=== PATIENT | male | born 1965 | race Caucasian/White ===

== ENCOUNTER 2018-05-20 14:16 | Inpatient (IN) | payer OTHER ==
[~2018-05-20] VITALS: Ht 180.3 cm; Wt 94.3 kg
[~2018-05-20 14:16] MED LIST: DIURETIC PO
[2018-05-20 15:29] LABS: BASOPHILS % (AUTO) 1.3 % (0.0-2.0); EOSINOPHILS % (AUTO) 2.4 % (1.0-6.0); HEMATOCRIT 37.4 % (41-53); HEMOGLOBIN 13.1 g/dL (13.5-17.5); LYMPHOCYTES # (AUTO) 0.7 K/uL (1.0-4.8); LYMPHOCYTES % (AUTO) 15.1 % (22.0-44.0); MEAN CORPUSCULAR HEMOGLOBIN 34.8 pg (26.0-34.0); MEAN CORPUSCULAR VOLUME 99 fL (80-100); MONOCYTES # (AUTO) 0.7 K/uL (0.1-1.0); MONOCYTES % (AUTO) 14.7 % (2.0-9.0); NEUTROPHILS % (AUTO) 66.5 % (40.0-70.0); RED BLOOD CELL COUNT(AUTO) 3.76 MIL/uL (4.50-5.90); RED CELL DISTRIBUTION WIDTH 14.4 % (11.5-14.5)
[2018-05-20 15:43] LABS: ANION GAP 8 mmol/L (8-16); CALCIUM, TOTAL 8.2 mg/dL (8.8-10.5); CARBON DIOXIDE 23 mmol/L (22-29); CHLORIDE 100 mmol/L (98-107); CREATININE 0.73 mg/dL (0.60-1.30); GLOMERULAR FILTR. RATE CALC > 60 mL/min (>60); GLUCOSE,RANDOM 167 mg/dL (70-110); POTASSIUM 4.3 mmol/L (3.5-5.1); SODIUM SERUM 131 mmol/L (136-145); UREA NITROGEN, BLOOD 8 mg/dL (7-18)
[2018-05-20 15:47] LABS: ALANINE AMINOTRANSFERASE 71 U/L (12-78); ALBUMIN 1.9 g/dL (3.4-5.0); ALKALINE PHOSPHATASE 228 U/L (46-116); ASPARTATE AMINOTRANSFERASE 99 U/L (15-37); BILIRUBIN,TOTAL 2.4 mg/dL (0.1-1.0); LIPASE 179 U/L (73-393); TOTAL PROTEIN, SERUM 6.2 g/dL (6.4-8.2)
[2018-05-20 15:53] LABS: B-TYPE NATRIURETIC PEPTIDE 30 pg/mL (0-100)
[2018-05-20 15:55] LABS: PLATELET COUNT (AUTO) 76 K/uL (150-450); PLATELET MORPHOLOGY COMMENT LARGE PLTS PRESENT
[2018-05-20 16:12] LABS: APPEARANCE,URINE CLEAR (CLEAR); GLUCOSE, URINE (UA) NEGATIVE (NEGATIVE); KETONES,URINE NEGATIVE (NEGATIVE); LEUKOCYTE ESTERASE ,URINE TRACE (NEGATIVE); NITRATE,URINE NEGATIVE (NEGATIVE); OCCULT BLOOD,URINE NEGATIVE (NEGATIVE); PH,URINE 6.5 (5.0-8.0); PROTEIN,URINE NEGATIVE (NEGATIVE)
[2018-05-20 16:15] LABS: BILIRUBIN,URINE PRELIM. POSITIVE (NEGATIVE)
[2018-05-20 16:20] LABS: RBC,URINE 0-2 /HPF (0-2)
[2018-05-20 16:21] LABS: BACTERIA,URINE Few /HPF (None Seen); CALCIUM OXALATE CRYSTALS,UR Few /LPF (None Seen); SQUAMOUS EPITHELIAL CELL,UR Rare /LPF (None Seen)
[2018-05-20] MEDS ORDERED: LACTULOSE 20 GM/30 ML SOLUTION UDCUP PO ONE (17:45)
[2018-05-20] MEDS ORDERED: 0.9% SODIUM CHLORIDE 10 ML SYRINGE IVP PRN ×2 (18:45→22:45)
[2018-05-20] MEDS ORDERED: ACETAMINOPHEN 325 MG TABLET PO PRN (18:45)
[2018-05-20] MEDS ORDERED: ONDANSETRON HCL 4 MG/2 ML VIAL IVP PRN ×2 (18:45→22:45)
[2018-05-20 20:52] VITALS: BP 127/74
[2018-05-20] MEDS ORDERED: OxyCODONE HCL/ACETAMINOPHEN 5-325 MG TABLET PO PRN ×2 (22:45)
[2018-05-20] MEDS ORDERED: ALBUMIN HUMAN 25%-25GM/100ML 100 ML IV ONE (23:00)
[2018-05-20] MEDS ORDERED: SODIUM CHLORIDE 0.9% 500 ML IV ONE (23:29)
[2018-05-20] MEDS: DOCUSATE SODIUM 100 MG CAPSULE PO SCH (23:43)
[2018-05-20] MEDS: FUROSEMIDE 40 MG/4 ML VIAL IVP SCH (23:43)
[2018-05-20] MEDS: SPIRONOLACTONE 25 MG TABLET PO SCH (23:43)
[2018-05-21 01:10] VITALS: BP 101/53
[2018-05-21 04:40] VITALS: BP 95/54
[2018-05-21 05:58] LABS: BASOPHILS % (AUTO) 0.7 % (0.0-2.0); EOSINOPHILS % (AUTO) 3.4 % (1.0-6.0); HEMATOCRIT 34.4 % (41-53); HEMOGLOBIN 12.2 g/dL (13.5-17.5); LYMPHOCYTES # (AUTO) 0.7 K/uL (1.0-4.8); LYMPHOCYTES % (AUTO) 16.8 % (22.0-44.0); MEAN CORPUSCULAR HEMOGLOBIN 35.3 pg (26.0-34.0); MEAN CORPUSCULAR HGB CONC 35.5 G/dL (31.0-37.0); MEAN CORPUSCULAR VOLUME 99 fL (80-100); MONOCYTES # (AUTO) 0.8 K/uL (0.1-1.0); MONOCYTES % (AUTO) 18.5 % (2.0-9.0); NEUTROPHILS # (AUTO) 2.6 K/uL (1.8-7.7); NEUTROPHILS % (AUTO) 60.6 % (40.0-70.0); PLATELET COUNT (AUTO) 68 K/uL (150-450); RED BLOOD CELL COUNT(AUTO) 3.47 MIL/uL (4.50-5.90); RED CELL DISTRIBUTION WIDTH 14.4 % (11.5-14.5)
[2018-05-21 06:05] LABS: INR 1.4 (0.9-1.1); PROTHROMBIN TIME 14.4 SEC (9.4-11.6)
[2018-05-21 06:11] LABS: ANION GAP 13 mmol/L (8-16); CALCIUM, TOTAL 8.2 mg/dL (8.8-10.5); CARBON DIOXIDE 18 mmol/L (22-29); CHLORIDE 100 mmol/L (98-107); CREATININE 0.75 mg/dL (0.60-1.30); GLOMERULAR FILTR. RATE CALC > 60 mL/min (>60); GLUCOSE,RANDOM 114 mg/dL (70-110); SODIUM SERUM 131 mmol/L (136-145); UREA NITROGEN, BLOOD 8 mg/dL (7-18)
[2018-05-21 08:00] VITALS: BP 100/58
[2018-05-21 08:34] LABS: PLATELET MORPHOLOGY COMMENT LARGE PLTS PRESENT
[2018-05-21] MEDS: FUROSEMIDE 40 MG/4 ML VIAL IVP SCH ×2 (09:00→12:31)
[2018-05-21] MEDS: SPIRONOLACTONE 25 MG TABLET PO SCH ×3 (09:00→20:01)
[2018-05-21 10:10] LABS: SPECIMENTYPE,BODY FLUID THORACENTESIS
[2018-05-21 11:21] LABS: APPEARANCE,SPUN,BODY FLUID CLEAR (CLEAR); APPEARANCE,UNSPUN,BODY FLUID HAZY (CLEAR); COLOR,BODY FLUID YELLOW (LT YELLOW); TOTAL VOLUME,BODY FLUID 1100 mL
[2018-05-21 11:25] LABS: BASOPHILS,BODY FLUID 0 %; EOSINOPHILS,BF (ANAL) 0 %; LYMPHOCYTES,BODY FLUID 37 %; MONOCYTES,BODY FLUID 46 %; NEUTROPHILS,BODY FLUID 17 %; WBC, BODY FLUID 86 /cu. mm.
[2018-05-21 11:46] VITALS: BP 117/66
[2018-05-21] MEDS: LACTULOSE 20 GM/30 ML SOLUTION UDCUP PO SCH ×3 (12:22→20:01)
[2018-05-21] MEDS: PANTOPRAZOLE SODIUM 40 MG/VIAL IVP SCH (12:22)
[2018-05-21] MEDS: DOCUSATE SODIUM 100 MG CAPSULE PO SCH ×2 (12:22→20:01)
[2018-05-21 16:00] VITALS: BP 112/68
[2018-05-21 20:03] VITALS: BP 117/72
[2018-05-22 04:10] VITALS: BP 117/73
[2018-05-22 06:16] LABS: BILIRUBIN,DIRECT 0.8 mg/dL (0.00-0.20); BILIRUBIN,TOTAL 3.2 mg/dL (0.1-1.0)
[2018-05-22 07:37] VITALS: BP 111/70
[2018-05-22] MEDS: PANTOPRAZOLE SODIUM 40 MG/VIAL IVP SCH (08:17)
[2018-05-22] MEDS: LACTULOSE 20 GM/30 ML SOLUTION UDCUP PO SCH (08:18)
[2018-05-22] MEDS: SPIRONOLACTONE 25 MG TABLET PO SCH (08:18)
[2018-05-22] MEDS: DOCUSATE SODIUM 100 MG CAPSULE PO SCH (08:18)
[2018-05-22] MEDS ORDERED: FUROSEMIDE 40 MG/4 ML VIAL IVP SCH (09:00)
[2018-05-22 11:42] VITALS: BP 115/74
[2018-05-22] MEDS ORDERED: RIFAX550 PO (11:47)
[2018-05-22] MEDS ORDERED: LACT30L PO (11:48)
[2018-05-22] MEDS ORDERED: FURO40 PO (11:48)
[2018-05-22] MEDS ORDERED: SPIR50 PO (11:48)
== END 2018-05-22 12:11 | disposition home or self-care (01) | DRG 279 ==
LOC: EMS 14:16 → 6N 19:43 → UNDOADMIN 19:43
PROVIDERS: ADMIT Internal Medicine; ATTEND Internal Medicine
PROC: 0W993ZZ Drainage of Right Pleural Cavity, Percutaneous Approach (ICD-10-PCS; principal; 2018-05-21)
DX: K72.90 Hepatic failure, unspecified without coma (principal); E43 Unspecified severe protein-calorie malnutrition; J90 Pleural effusion, not elsewhere classified; D61.818 Other pancytopenia; Z76.82 Awaiting organ transplant status; D68.9 Coagulation defect, unspecified; R18.8 Other ascites; E88.09 Other disorders of plasma-protein metabolism, not elsewhere classified; K74.60 Unspecified cirrhosis of liver; I10 Essential (primary) hypertension; B19.20 Unspecified viral hepatitis C without hepatic coma; K42.9 Umbilical hernia without obstruction or gangrene; Z82.49 Family history of ischemic heart disease and other diseases of the circulatory system
CPT/HCPCS: 32555; 76700; 76942; 82247; 82248; 82465; 82945; 83615; 83986; 84157; 87015; 87070; 87081; 87205; 87206; 88108; 89051; 99285; C9113; J1940; J7040; P9046